=== PATIENT | female | born 1990 | race Hispanic/Latino ===

== ENCOUNTER 2017-11-01 22:55 | Emergency (ER) | payer SELFPAY | END 2017-11-02 00:27 | disposition home or self-care (01) | LOC: EDH 22:55 | DX: R05 Cough (principal); R09.81 Nasal congestion; R11.10 Vomiting, unspecified ==

== ENCOUNTER 2018-08-13 21:30 | Emergency (ER) | payer OTHER | END 2018-08-13 22:09 | disposition home or self-care (01) | LOC: EDH 21:30 | DX: A60.00 Herpesviral infection of urogenital system, unspecified (principal); Z79.899 Other long term (current) drug therapy; Z98.890 Other specified postprocedural states | CPT/HCPCS: 99281 ==